=== PATIENT | female | born 2000 | race Caucasian/White ===

== ENCOUNTER 2018-07-23 18:42 | Emergency (ER) | payer OTHER ==
[2018-07-23] MEDS ORDERED: IBUPROFEN 100 MG/5 ML UNIT DOSE CUPS PO ONE (19:20)
--- NOTE | 2018-07-23 19:24 | PDOC ---
Rapid Medical Evaluation Chief Complaint: Cold Symptoms Medical Evaluation: 07/23/18 19:27 I have performed a brief in-person evaluation of this patient. The patient presents with a chief complaint of:cough / fevers/ SOB x 1 week Pertinent physical exam findings: moist cough, BReath sounds tight but moving air. I have ordered the following: UCG/ DuoNeb The patient will proceed to the ED for further evaluation. Discharge Disposition - Referrals Referrals: Lara Fernandez MD [Primary Care Provider] - - Patient Instructions - Post Discharge Activity
[2018-07-23 19:25] VITALS: BP 122/83; PULSE 80; TEMP 97.9; BMI 22.1
[2018-07-23] MEDS ORDERED: ALBUTEROL SO4 2.5/IPRATROPIUM 0.5 INH SOL 3 ML VIAL.NEB. NEB ONE (19:26)
[2018-07-23] MEDS ORDERED: DEXAMETHASONE LIQUID 0.5 MG/5 ML 240 ML BULK BOTTLE PO ONE (21:15)
[2018-07-23] MEDS ORDERED: DEXAMETHASONE SOD PHOSPHATE 10 MG/1 ML VIAL ONE (21:17)
--- NOTE | 2018-07-23 21:21 | PDOC ---
History of Present Illness - General Chief Complaint: Cold Symptoms Stated Complaint: Cold Symptoms Time Seen by Provider: 07/23/18 19:49 - History of Present Illness Initial Comments: 07/23/18 21:18 17-year-old female without comorbidities presents for evaluation of cough times one week without systemic symptoms. She does have an associated headache when she coughs. Past History - Past Medical History Allergies/Adverse Reactions: Allergies Allergy/AdvReac Type Severity Reaction Status Date / Time No Known Allergies Allergy Verified 07/23/18 19:47 Home Medications: Ambulatory Orders Albuterol Sulfate Inhaler - [Ventolin HFA Inhaler -] 1 - 2 inh PO Q4H #1 inhaler 07/23/18 Azithromycin [Zithromax -] 250 mg PO UTDICT #6 tab 07/23/18 Guaifenesin [Robitussin] 5 ml PO HS #30 ml 07/23/18 - Suicide/Smoking/Psychosocial Hx Smoking History: Never smoked Hx Alcohol Use: No Drug/Substance Use Hx: No Review of Systems - Review of Systems Constitutional: No: Fever Respiratory: Yes: Cough Neurological: Yes: Headache *Physical Exam - Vital Signs Last Vital Signs Temp Pulse Resp BP Pulse Ox 97.9 F 80 20 122/83 99 07/23/18 19:23 07/23/18 19:23 07/23/18 19:23 07/23/18 19:23 07/23/18 19:23 - Physical Exam Comments: 07/23/18 21:18 HEAD: NC/AT EYES: Conjuntiva clear Ears: Canals and TM's normal NOSE: No d/c THROAT: Moist mucous membrances, oral pharanx clear, uvula midline NECK: Supple without adenopathy CARDIAC: S1 S2 LUNGS: CTA Full and Equal breath sounds ABDOMEN: Soft NT ND MS: Full ROM in all joints without edema NEUROLOGIC: No gross sensory or motor deficits, NVID SKIN: Normal color and temperature no lesions or rashes Moderate Sedation - Procedure Monitoring Vital Signs: Procedure Monitoring Vital Signs Temperature 97.9 F 07/23/18 19:23 Pulse Rate 80 07/23/18 19:23 Respiratory Rate 20 07/23/18 19:23 Blood Pressure 122/83 07/23/18 19:23 O2 Sat by Pulse Oximetry (%) 99 07/23/18 19:23 ED Treatment Course - ADDITIONAL ORDERS Additional order review: Laboratory Results 07/23/18 19:45 Urine HCG, Qual Negative - RADIOLOGY Radiology Studies Ordered: Category Date Time Status CHEST PA & LAT [RAD] Stat Radiology 07/23/18 20:23 Taken - Medications Given in the ED: ED Medications Discontinued Medications Generic Name Dose Route Start Last Admin Trade Name Brian PRN Reason Stop Dose Admin Albuterol/Ipratropium 1 amp 07/23/18 19:26 07/23/18 19:48 Duoneb - NEB 07/23/18 19:27 1 amp ONCE ONE Administration Ibuprofen 200 mg 07/23/18 19:20 07/23/18 19:25 Motrin Oral Suspension - PO 07/23/18 19:21 Not Given ONCE ONE Medical Decision Making - Medical Decision Making 07/23/18 21:18 17-year-old female without comorbidities with cough increasing over the last week with associated headache most likely mycoplasma I will treat her for mycoplasma 07/23/18 21:19 Discreet infiltrate on radiographed today however she does appear to have streak atelectasis in the right lower lobe *DC/Admit/Observation/Transfer Diagnosis at time of Disposition: Bronchitis - Discharge Dispostion Disposition: HOME Condition at time of disposition: Stable Decision to Admit order: No - Referrals Referrals: Lara Fernandez MD [Primary Care Provider] - - Patient Instructions Printed Discharge Instructions: Acute Bronchitis, DI for Acute Bronchitis Additional Instructions: Return to the emergency room if symptoms worsen or go unresolved. Follow-up with your primary care physician in one to 2 days for further evaluation and treatment options. Please take the antibiotics as directed. Tylenol Motrin for pain and fever and headache as directed. - Post Discharge Activity Forms/Work/School Notes: Back to Work
== END 2018-07-23 21:28 | disposition home or self-care (01) ==
LOC: JERFT 18:42 → JER 18:42 → JERFT 21:28
PROC: 3E0F7GC Introduction of Other Therapeutic Substance into Respiratory Tract, Via Natural or Artificial Opening (ICD-10-PCS; principal; 2018-07-23)
DX: J40 Bronchitis, not specified as acute or chronic (principal)
CPT/HCPCS: 71046-TC-FY; 84703; 99281-25